=== PATIENT | female | born 1950 | race Caucasian/White ===

== ENCOUNTER 2019-04-27 07:43 | Inpatient (IN) | payer MEDICARE ==
--- NOTE | 2019-04-27 08:02 | ER Document Report ---
ED General - General Stated Complaint: VOMITING,BLOOD PRESSURE ISSUES Time Seen by Provider: 04/27/19 08:02 - HPI Notes: 69 y/o presenting to ED for evaluation of weakness, chills, clear liquid emesis x3, and generalized sensation of being unwell she went to pcp today and was referrred to ED due to symptoms and blood sugar in 350 range she has no h/o diabetes she was unaware that she has had a fever and upon questioning also reports a cough -nonproductive. - Related Data Allergies/Adverse Reactions: Penicillins Allergy (Verified 04/27/19 09:12) Sulfa (Sulfonamide Antibiotics) Allergy (Verified 04/27/19 09:12) Past Medical History - Social History Smoking Status: Unknown if Ever Smoked Family History: Reviewed & Not Pertinent Review of Systems - Review of Systems Constitutional: Chills, Fever, Weakness EENT: No symptoms reported Cardiovascular: No symptoms reported Respiratory: Cough, Short of breath Gastrointestinal: Nausea, Vomiting. denies: Diarrhea Genitourinary: No symptoms reported Female Genitourinary: No symptoms reported Musculoskeletal: No symptoms reported Skin: No symptoms reported Hematologic/Lymphatic: No symptoms reported Neurological/Psychological: No symptoms reported Physical Exam - Vital signs Vitals: Temp Pulse Resp BP Pulse Ox 100.3 F 124 H 22 H 125/52 L 95 04/27/19 07:51 04/27/19 07:51 04/27/19 07:51 04/27/19 07:51 04/27/19 07:51 Interpretation: Normal - General General appearance: Alert, Other - appears uncomfortable - HEENT Head: Normocephalic, Atraumatic Eyes: Normal Pupils: PERRL Tympanic membrane: Normal Nasal: Normal Mouth/Lips: Normal Mucous membranes: Dry Pharynx: Normal Neck: Normal, Supple - Respiratory Respiratory status: No respiratory distress Chest status: Nontender Breath sounds: Normal Chest palpation: Normal - Cardiovascular Rhythm: Tachycardia Heart sounds: Normal auscultation Murmur: No Pulses: Normal: Radial - Abdominal Inspection: Normal Distension: No distension Bowel sounds: Normal Tenderness: Nontender Organomegaly: No organomegaly - Back Back: Normal, Nontender - Extremities General upper extremity: Normal inspection, Nontender, Normal color, Normal ROM, Normal temperature General lower extremity: Normal inspection, Nontender, Normal color, Normal ROM, Normal temperature, Normal weight bearing. No: Carolina's sign - Neurological Neuro grossly intact: Yes Cognition: Normal Orientation: AAOx4 [place] Coma Scale Eye Opening: Spontaneous [place] Coma Scale Verbal: Oriented [place] Coma Scale Motor: Obeys Commands [place] Coma Scale Total: 15 Speech: Normal Motor strength normal: LUE, RUE, LLE, RLE Sensory: Normal - Psychological Associated symptoms: Normal affect, Normal mood - Skin Skin Temperature: Warm Skin Moisture: Dry Skin Color: Normal Course - Re-evaluation Re-evalutation: 04/27/19 08:23 patient w/ nonspecific presentation w/ fever and elevated blood sugar will check for sepsis, pna, uti, and electrolyte disturbances start ivf upon arrival 04/27/19 10:53 infiltrate on CTA rocephin and zithromax started admit requested - Vital Signs Vital signs: Temp Pulse Resp BP Pulse Ox 100.3 F 124 H 20 118/66 92 04/27/19 07:51 04/27/19 07:51 04/27/19 09:11 04/27/19 09:11 04/27/19 09:11 - Laboratory Result Diagrams: 04/27/19 08:10 04/27/19 08:10 Laboratory results interpreted by me: 04/27/19 04/27/19 08:10 08:10 Plt Count 125 L Lymph % (Auto) 7.6 L Seg Neutrophils % 87.6 H Sodium 133.5 L Chloride 97 L BUN 25 H Creatinine 1.52 H Est GFR ( Amer) 41 L Est GFR (MDRD) Non-Af 34 L Glucose 353 H Direct Bilirubin 0.5 H Alkaline Phosphatase 137 H - Diagnostic Test Radiology reviewed: Reports reviewed - EKG Interpretation by Me Additional EKG results interpreted by me: 04/27/19 10:54 sinus tachycardia, nonspecific T wave changes Discharge - Discharge Clinical Impression: Hyperglycemia, Shortness of breath Pneumonia Qualifiers: Pneumonia type: due to unspecified organism Laterality: right Lung location: middle lobe of lung Qualified Code(s): J18.1 - Lobar pneumonia, unspecified organism Condition: Stable Disposition: ADMITTED INPATIENT Admitting Provider: Waldemar (Hospitalist) Unit Admitted: Telemetry
[2019-04-27] MEDS ORDERED: NORMAL SALINE 1000 ML 1,000 ML IV ONE ×4 (08:20→18:30)
[2019-04-27] MEDS ORDERED: ACETAMINOPHEN 325 MG TABLET PO ONE (08:21)
[2019-04-27] MEDS ORDERED: ONDANSETRON HCL INJ/PF 4 MG/2 ML SDV IV ONE (08:24)
[2019-04-27 08:26] LABS: ABSOLUTE LYMPHOCYTES (AUTO) 0.6 10^3/uL (0.5-4.7); ABSOLUTE MONOCYTES (AUTO) 0.3 10^3/uL (0.1-1.4); ABSOLUTE NEUT (AUTO) 7.4 10^3/uL (1.7-8.2); BASOPHILS % (AUTO) 0.2 % (0-2); EOSINOPHILS % (AUTO) 0.6 % (0-6); HEMATOCRIT 38.3 % (36.0-47.0); HEMOGLOBIN 13.4 g/dL (12.0-15.5); LYMPHOCYTES % (AUTO) 7.6 % (13-45); MEAN CORPUSCULAR HEMOGLOBIN 32.4 pg (27.0-33.4); MEAN CORPUSCULAR HGB CONC 34.9 g/dL (32.0-36.0); MEAN CORPUSCULAR VOLUME 93 fl (80-97); PLATELET COUNT 125 10^3/uL (150-450); RED BLOOD COUNT 4.13 10^6/uL (3.72-5.28); RED CELL DISTRIBUTION WIDTH 12.8 % (11.5-14.0); SEGMENTED NEUTROPHILS % (AUTO) 87.6 % (42-78); TOTAL CELLS COUNTED % (AUTO) 100 %; WHITE BLOOD COUNT 8.4 10^3/uL (4.0-10.5)
[2019-04-27 08:27] LABS: VENOUS BLOOD BASE EXCESS 0.6 mmol/L; VENOUS BLOOD HCO3 25.6 mmol/L (20-32); VENOUS BLOOD PCO2 42.4 mmHg (35-63); VENOUS BLOOD PH 7.4 (7.30-7.42)
[2019-04-27 08:33] LABS: INTERNATIONAL RATION (INR) 1.09; PROTHROMBIN TIME 14.1 SEC (11.4-15.4)
[2019-04-27 08:46] LABS: ALBUMIN 3.5 g/dL (3.5-5.0); ALKALINE PHOSPHATASE 137 U/L (38-126); ANION GAP 12 (5-19); ASPARTATE AMINO TRANSFERASE 34 U/L (14-36); BILIRUBIN,DIRECT 0.5 mg/dL (0.0-0.4); BILIRUBIN,TOTAL 1.3 mg/dL (0.2-1.3); BLOOD UREA NITROGEN 25 mg/dL (7-20); CARBON DIOXIDE 25 mmol/L (22-30); CHLORIDE 97 mmol/L (98-107); GLUCOSE 353 mg/dL (75-110); POTASSIUM 3.8 mmol/L (3.6-5.0); TOTAL PROTEIN 6.5 g/dL (6.3-8.2)
[2019-04-27] MEDS ORDERED: IPRATROPIUM/ALBUTEROL 0.5-2.5 MG/3 ML AMPUL NEB ONE ×2 (08:46→08:54)
[2019-04-27] MEDS ORDERED: ONDANSETRON HCL INJ/PF 4 MG/2 ML SDV ONE (08:54)
--- NOTE | 2019-04-27 09:13 | RADIOLOGY REPORT (SQ) ---
EXAM DESCRIPTION: CHEST SINGLE VIEW COMPLETED DATE/TIME: 04/27/2019 9:00 am REASON FOR STUDY: fever COMPARISON: None. EXAM PARAMETERS: NUMBER OF VIEWS: One view. TECHNIQUE: Single frontal radiographic view of the chest acquired. RADIATION DOSE: NA LIMITATIONS: None. FINDINGS: LUNGS AND PLEURA: No opacities, masses or pneumothorax. No pleural effusion. MEDIASTINUM AND HILAR STRUCTURES: No masses. Contour normal. HEART AND VASCULAR STRUCTURES: Heart normal in size. Aortic atherosclerosis. BONES: No acute findings. HARDWARE: None in the chest. OTHER: No other significant finding. IMPRESSION: No focal consolidation or other evidence of acute cardiopulmonary process. TECHNICAL DOCUMENTATION: JOB ID: [id number] [employer]- All Rights Reserved Reading location - IP/workstation name: [email or web address]
[2019-04-27 09:20] LABS: A TYPE INFLUENZA AG NEGATIVE (NEGATIVE); B INFLUENZA AG NEGATIVE (NEGATIVE)
--- NOTE | 2019-04-27 10:31 | RADIOLOGY REPORT (SQ) ---
EXAM DESCRIPTION: CTA CHEST COMPLETED DATE/TIME: 04/27/2019 10:15 am REASON FOR STUDY: short of breath COMPARISON: None. TECHNIQUE: CT scan of the chest performed using helical scanning technique with dynamic intravenous contrast injection. Images reviewed with lung, soft tissue and bone windows. Reconstructed coronal and sagittal MPR images reviewed. Additional 3 dimensional post-processing performed to develop Maximal Intensity Projection images (PR P). All images stored on PACS. All CT scanners at this facility use dose modulation, iterative reconstruction, and/or weight based d osing when appropriate to reduce radiation dose to as low as reasonably achievable (ALARA). [facility]: Dose Right [facility]: CareDose [facility]: Dose Right [facility]: Teradose 4D [facility]: Huy [place] CONTRAST TYPE AND DOSE: contrast/concentration: Isovue 350.00 mg/ml; Total Contrast Delivered: 67.0 ml; Total Saline Delivered: 80.0 ml Contrast bolus optimized for the pulmonary arteries. Not diagnostic for the aorta. RENAL FUNCTION: GFR > 60. RADIATION DOSE: CT Rad equipment meets quality standard of care and radiation dose reduction techniq ues were employed. CTDIvol: 13.2 - 24.8 mGy. DLP: 863 mGy-cm. . LIMITATIONS: None. FINDINGS: LUNGS AND PLEURA: Bandlike scarring or consolidation of the medial right middle lobe. No pleural effusions or pleural calcifications. AORTA AND GREAT VESSELS: No aneurysm. Contrast bolus not optimized for the aorta. Severe mixed calc ific atherosclerosis of the descending aorta with irregular mural thrombus. HEART: No pericardial effusion. No significant coronary artery calcifications. PULMONARY ARTERIES: No emboli visualized in the main pulmonary arteries or the segmental branches. C oronary artery calcifications. HILAR AND MEDIASTINAL STRUCTURES: No identified masses or abnormal nodes. HARDWARE: None in the chest. UPPER ABDOMEN: No significant findings. Limited exam. THYROID AND OTHER SOFT TISSUES: No masses. No adenopathy. BONES: No acute or significant finding. 3D MIPS: Confirm above findings. OTHER: No other significant finding. IMPRESSION: 1. Negative examination for pulmonary embolism. 2. Bandlike scarring or consolidation in the medial right middle lobe, which can be seen as sequelae of atypical infection, including atypical mycobacterium. 3. Severe mixed calcific atherosclerosis of the descending thoracic aorta with irregular mural throm bus. 4. Coronary artery disease. COMMENT: Quality ID # [id number]: Final reports with documentation of one or more dose reduction techniques (e.g., Automated exposure control, adjustment of the mA and/or kV according to patient size, use of iterative reconstruction technique) TECHNICAL DOCUMENTATION: JOB ID: [id number] [employer]- All Rights Reserved Reading location - IP/workstation name: [email or web address]
[2019-04-27] MEDS ORDERED: CEFTRIAXONE 1 GM/D5W RTU 1 GM/50 ML RTUPB IV ONE (10:50)
[2019-04-27] MEDS ORDERED: AZITHROMYCIN INJ 500 MG VIAL IV ONE (10:50)
[2019-04-27] MEDS ORDERED: ONDANSETRON HCL INJ/PF 4 MG/2 ML SDV IV PRN (11:12)
[2019-04-27] MEDS ORDERED: MAG HYDROX/AL HYDROX/SIMETH SUSP 30 ML UDCUP PO PRN (11:12)
[2019-04-27] MEDS ORDERED: DEXTROSE 40% GEL 15 GM TUBE PO PRN ×2 (11:16)
[2019-04-27] MEDS ORDERED: GLUCAGON,HUMAN RECOMB 1 MG INJ IM PRN (11:16)
[2019-04-27] MEDS ORDERED: DEXTROSE 50%-WATER 25 GM/50 ML DISP.SYRIN IV PRN ×2 (11:16)
[2019-04-27] MEDS ORDERED: INFLUENZA QUAD (6MOS+) 2019-20 VAC 0.5 ML SYR IM ONE (11:17)
--- NOTE | 2019-04-27 11:23 | PDOC H&P ---
History of Present Illness Admission Date/PCP: 04/27/19 11:08 GEORGE YANG PA-C Patient complains of: Cough, left-sided pain below her shoulder blade History of Present Illness: LIDA PERKINS is a 69 year old female who presents from her primary care office with hyperglycemia with a blood sugar of 353. Patient also complains of weakness, chills and clear emesis x3 days. Patient has no history of diabetes and she was unaware that she had a fever but has reported a nonproductive cough. She had no treatment prior to arrival all activities aggravating factor. Past Medical History Cardiac Medical History: Reports: Hypertension Pulmonary Medical History: Reports: None EENT Medical History: Reports: None Neurological Medical History: Reports: None Endocrine Medical History: Reports: None Renal/ Medical History: Reports: None Malignancy Medical History: Reports: None GI Medical History: Reports: None Musculoskeltal Medical History: Reports: None Skin Medical History: Reports: None Psychiatric Medical History: Reports: None Traumatic Medical History: Reports: None Hematology: Reports: None Infectious Medical History: Reports: None Past Surgical History Past Surgical History: Reports: Cholecystectomy, Tubal Ligation Social History Information Source: Patient Lives with: Family Smoking Status: Former Smoker Frequency of Alcohol Use: None Hx Recreational Drug Use: No Drugs: None Hx Prescription Drug Abuse: No - Advance Directive Resuscitation Status: Full Code Family History Family History: Hypertension Parental Family History Reviewed: Yes Children Family History Reviewed: Yes Sibling(s) Family History Reviewed.: Yes Medication/Allergy Home Medications: Lisinopril 04/27/19 Allergies/Adverse Reactions: Penicillins Allergy (Verified 04/27/19 09:12) Sulfa (Sulfonamide Antibiotics) Allergy (Verified 04/27/19 09:12) Review of Systems Constitutional: PRESENT: weakness. ABSENT: chills, fever(s), headache(s), weight gain, weight loss Eyes: ABSENT: visual disturbances Ears: ABSENT: hearing changes Cardiovascular: ABSENT: chest pain, dyspnea on exertion, edema, orthropnea, palpitations Respiratory: PRESENT: cough, sputum. ABSENT: hemoptysis Gastrointestinal: ABSENT: abdominal pain, constipation, diarrhea, hematemesis, hematochezia, nausea, vomiting Genitourinary: ABSENT: dysuria, hematuria Musculoskeletal: ABSENT: joint swelling Integumentary: ABSENT: rash, wounds Neurological: ABSENT: abnormal gait, abnormal speech, confusion, dizziness, focal weakness, syncope Psychiatric: ABSENT: anxiety, depression, homidical ideation, suicidal ideation Endocrine: ABSENT: cold intolerance, heat intolerance, polydipsia, polyuria Hematologic/Lymphatic: ABSENT: easy bleeding, easy bruising Physical Exam Vital Signs: Temp Pulse Resp BP Pulse Ox 100.3 F 124 H 20 118/66 92 04/27/19 07:51 04/27/19 07:51 04/27/19 09:11 04/27/19 09:11 04/27/19 09:11 Intake & Output 04/26/19 04/27/19 04/28/19 06:59 06:59 06:59 Weight 94.12 kg General appearance: PRESENT: no acute distress, well-developed, well-nourished Head exam: PRESENT: atraumatic, normocephalic Eye exam: PRESENT: conjunctiva pink, EOMI, PERRLA. ABSENT: scleral icterus Ear exam: PRESENT: normal external ear exam Mouth exam: PRESENT: moist, tongue midline Neck exam: ABSENT: carotid bruit, JVD, lymphadenopathy, thyromegaly Respiratory exam: PRESENT: crackles, decreased breath sounds, symmetrical, tachypnea, unlabored. ABSENT: rales, rhonchi, wheezes Cardiovascular exam: PRESENT: RRR. ABSENT: diastolic murmur, rubs, systolic murmur Pulses: PRESENT: normal dorsalis pedis pul Vascular exam: PRESENT: normal capillary refill GI/Abdominal exam: PRESENT: normal bowel sounds, soft. ABSENT: distended, guarding, mass, organolmegaly, rebound, tenderness Rectal exam: PRESENT: deferred Extremities exam: PRESENT: full ROM. ABSENT: calf tenderness, clubbing, pedal edema Neurological exam: PRESENT: alert, awake, oriented to person, oriented to place, oriented to time, oriented to situation, CN II-XII grossly intact. ABSENT: motor sensory deficit Psychiatric exam: PRESENT: appropriate affect, normal mood. ABSENT: homicidal ideation, suicidal ideation Skin exam: PRESENT: dry, intact, warm. ABSENT: cyanosis, rash Results Laboratory Results: 04/27/19 08:10 04/27/19 08:10 04/27/19 04/27/19 04/27/19 08:10 08:10 08:10 WBC 8.4 RBC 4.13 Hgb 13.4 Hct 38.3 MCV 93 MCH 32.4 MCHC 34.9 RDW 12.8 Plt Count 125 L Seg Neutrophils % 87.6 H VBG pH VBG pCO2 VBG HCO3 VBG Base Excess Sodium 133.5 L Potassium 3.8 Chloride 97 L Carbon Dioxide 25 Anion Gap 12 BUN 25 H Creatinine 1.52 H Est GFR ( Amer) 41 L Glucose 353 H Lactic Acid 1.6 Calcium 9.0 Total Bilirubin 1.3 AST 34 Alkaline Phosphatase 137 H Total Protein 6.5 Albumin 3.5 04/27/19 08:10 WBC RBC Hgb Hct MCV MCH MCHC RDW Plt Count Seg Neutrophils % VBG pH 7.40 VBG pCO2 42.4 VBG HCO3 25.6 VBG Base Excess 0.6 Sodium Potassium Chloride Carbon Dioxide Anion Gap BUN Creatinine Est GFR ( Amer) Glucose Lactic Acid Calcium Total Bilirubin AST Alkaline Phosphatase Total Protein Albumin Impressions: Chest X-Ray 04/27/19 00:00 IMPRESSION: No focal consolidation or other evidence of acute cardiopulmonary process. Chest/Abdomen CTA 04/27/19 09:40 IMPRESSION: 1. Negative examination for pulmonary embolism. 2. Bandlike scarring or consolidation in the medial right middle lobe, which can be seen as sequelae of atypical infection, including atypical mycobacterium. 3. Severe mixed calcific atherosclerosis of the descending thoracic aorta with irregular mural thrombus. 4. Coronary artery disease. Assessment and Plan - Plan Summary Summary: 04/27/2019 Community-acquired pneumonia-Place patient on medical surgical floor at this time. Rocephin 1 g IV daily, azithromycin 500 mg IV daily, bronchodilators, Solu-Medrol 40 mg IV every 8 hours. Reassess in the a.m. await blood cultures and sputum culture. New onset type 2 diabetes mellitus-sliding scale insulin before meals and at bedtime. A1c. Once A1c was returned I will add oral medications as needed for glycemic control. Carbohydrate controlled diet. Dietary education. Acute renal failure-hydrate with normal saline 100 mL an hour. Patient has no previous labs to confirm compare this to however do suspect its acute nature secondary to her acute illness. Will repeat BMP in the a.m. Hypertension-continue lisinopril from home. Tachycardia-most likely secondary to acute dehydration. Will hydrate with normal saline at 100 mL an hour overnight-. Reassess in the a.m. DVT prophylaxis-heparin 5000 units subcu every 8 hours. - Time Time Spent with patient: 35 or more minutes - Inpatient Certification Based on my medical assessment, after consideration of the patient's comorbidities, presenting symptoms, or acuity I expect that the services needed warrant INPATIENT care.: Yes I certify that my determination is in accordance with my understanding of Medicare's requirements for reasonable and necessary INPATIENT services [42 CFR 412.3e].: Yes Medical Necessity: Other - IV fluids, IV antibiotics
[2019-04-27] MEDS: ALBUTEROL SULFATE 0.083% NEB 2.5 MG/3 ML AMPUL NEB SCH ×3 (11:54→20:26)
[2019-04-27 12:59] LABS: ANION GAP 14 (5-19); BLOOD UREA NITROGEN 27 mg/dL (7-20); CALCIUM 8.2 mg/dL (8.4-10.2); CARBON DIOXIDE 19 mmol/L (22-30); CHLORIDE 97 mmol/L (98-107); POTASSIUM 4.4 mmol/L (3.6-5.0)
[2019-04-27 13:13] LABS: GLUCOSE 438 mg/dL (75-110)
[2019-04-27] MEDS: OXYCODONE-ACETAMINOPHEN 5-325 MG TABLET PO PRN (13:34)
[2019-04-27] MEDS: NORMAL SALINE 1000 ML 1,000 ML IV PRN ×2 (13:36→22:31)
--- NOTE | 2019-04-27 13:39 | EKG REPORT ---
SEVERITY:- BORDERLINE ECG - SINUS TACHYCARDIA BORDERLINE T ABNORMALITIES, INFERIOR LEADS : Confirmed by: Teresa Neumann MD 27-Apr-2019 13:38:08
[2019-04-27] MEDS: METHYLPREDNISOLONE INJ 40 MG/1 ML SDV IV SCH ×2 (14:51→21:20)
[2019-04-27] MEDS: HEPARIN SOD (PORCINE) 5,000 UNIT/ML 1 ML VIAL SUBCUT SCH ×2 (14:55→21:19)
[2019-04-27] MEDS ORDERED: INSULIN REG, HUMAN 100 UNIT/ML 3 ML VIAL (PYX) SUBCUT SCH (16:00)
[2019-04-27] MEDS ORDERED: INSULIN REG, HUMAN 100 UNIT/ML 3 ML VIAL (PYX) SUBCUT ONE ×2 (18:01→21:30)
[2019-04-27 19:54] LABS: APPEARANCE,URINE SLIGHTLY-CLOUDY; BILIRUBIN,URINE NEGATIVE (NEGATIVE); COLOR,URINE YELLOW; GLUCOSE, URINE >=500 mg/dL (NEGATIVE); KETONES,URINE NEGATIVE (NEGATIVE); LEUKOCYTE ESTERASE,URINE MODERATE (NEGATIVE); NITRITE,URINE NEGATIVE (NEGATIVE); PROTEIN,URINE 30 mg/dL (NEGATIVE); URINE SPECIFIC GRAVITY 1.042; UROBILINOGEN,URINE NEGATIVE mg/dL (<2.0)
[2019-04-27] MEDS ORDERED: RINGERS SOLUTION,LACTATED 1,000 ML IV ONE (20:58)
[2019-04-27] MEDS: ZOLPIDEM TARTRATE 5 MG TABLET PO PRN (21:20)
[2019-04-27] MEDS: GUAIFENESIN 600 MG TABLET.SA PO SCH (21:20)
[2019-04-27] MEDS ORDERED: INSULIN REG, HUMAN 100 UNIT/ML 3 ML VIAL (PYX) IV ONE (22:20)
[2019-04-27] MEDS: METRONIDAZOLE 500 MG/NS RTU 500 MG/100 ML RTUPB IV SCH (23:52)
[2019-04-28] MEDS: ALBUTEROL SULFATE 0.083% NEB 2.5 MG/3 ML AMPUL NEB SCH ×6 (00:02→20:17)
--- NOTE | 2019-04-28 02:00 | Progress Note ---
Provider Note Provider Note: Critical care: 04/27/2019 Critical care start time: 9 PM Critical care issues: Hyperglycemia, positive anaerobic blood culture with gram- negative rods. The patient's nurse contacted me concerning the patient's blood sugars which were not responding to insulin therapy. The patient had been given 30 units of regular insulin in the emergency room 3 hours prior to her Accu-Chek being performed and her blood sugar was unchanged at greater than 550. Patient's sliding scale insulin was increased in dosage's thus allowing for a maximum of 30 units subcutaneously. Patient was then treated with a 30 unit dose of regular insulin and observed. Patient continued to remain and symptomatic. More than an hour after her insulin dose her blood sugar was unchanged. A 15 unit dose of regular insulin was administered IV and her blood sugar was again checked in 1 hour with a recording of 499. The patient was noted to have received intravenous steroids which along with the stress of her current illness could result in very high blood sugars. I have reassured the patient in the nursing staff that the blood sugars will return to a more normal level without overly aggressive insulin therapy. Patient was also noted to have a positive anaerobic blood culture with gram-negative rods being observed. Flagyl 500 mg IV every 6 hours was added to the patient's therapeutic regimen. Critical care end time: 11:55 PM Critical care [id number] time: 19 minutes
[2019-04-28] MEDS: METRONIDAZOLE 500 MG/NS RTU 500 MG/100 ML RTUPB IV SCH ×4 (05:40→23:54)
[2019-04-28] MEDS: HEPARIN SOD (PORCINE) 5,000 UNIT/ML 1 ML VIAL SUBCUT SCH ×3 (05:41→22:13)
[2019-04-28] MEDS: METHYLPREDNISOLONE INJ 40 MG/1 ML SDV IV SCH (05:41)
[2019-04-28 05:43] LABS: HEMATOCRIT 31.6 % (36.0-47.0); MEAN CORPUSCULAR HEMOGLOBIN 32.3 pg (27.0-33.4); MEAN CORPUSCULAR HGB CONC 34.4 g/dL (32.0-36.0); MEAN CORPUSCULAR VOLUME 94 fl (80-97); PLATELET COUNT 125 10^3/uL (150-450); RED BLOOD COUNT 3.36 10^6/uL (3.72-5.28); RED CELL DISTRIBUTION WIDTH 12.9 % (11.5-14.0); WHITE BLOOD COUNT 8.9 10^3/uL (4.0-10.5)
[2019-04-28 05:51] LABS: PHOSPHORUS 2.7 mg/dL (2.5-4.5)
[2019-04-28 05:56] LABS: HEMOGLOBIN 10.9 g/dL (12.0-15.5)
[2019-04-28 06:04] LABS: FREE T4 (FREE THYROXINE) 0.95 ng/dL (0.78-2.19)
[2019-04-28 06:18] LABS: THYROID STIMULATING HORMONE 1.37 uIU/mL (0.47-4.68)
[2019-04-28] MEDS ORDERED: MAGNESIUM SULFATE/D5W 1 GM/100 ML RTUPB IV ONE (08:38)
--- NOTE | 2019-04-28 08:44 | PDOC PROGRESS REPORT ---
Subjective Progress Note for:: 04/28/19 Subjective:: 04/28/2019-no complaints this a.m. Reason For Visit: PNEUMONIA,HYPERGLYCEMIA,SHORTNESS OF BREATH Physical Exam Vital Signs: Temp Pulse Resp BP Pulse Ox 97.5 F 76 14 101/47 L 96 04/28/19 03:02 04/28/19 04:10 04/28/19 04:10 04/28/19 03:02 04/28/19 04:10 Intake & Output 04/27/19 04/28/19 04/29/19 06:59 06:59 06:59 Intake Total 6042 Balance 6042 Weight 96.7 kg General appearance: PRESENT: no acute distress, well-developed, well-nourished Neck exam: ABSENT: carotid bruit, JVD, lymphadenopathy, thyromegaly Respiratory exam: PRESENT: decreased breath sounds, symmetrical, unlabored Cardiovascular exam: PRESENT: RRR. ABSENT: diastolic murmur, rubs, systolic murmur Pulses: PRESENT: +1 pedal pulses bilateral GI/Abdominal exam: PRESENT: normal bowel sounds, soft. ABSENT: distended, guarding, mass, organolmegaly, rebound, tenderness Extremities exam: PRESENT: full ROM. ABSENT: calf tenderness, clubbing, pedal edema Neurological exam: PRESENT: alert, awake, oriented to person, oriented to place, oriented to time, oriented to situation, CN II-XII grossly intact. ABSENT: motor sensory deficit Psychiatric exam: PRESENT: appropriate affect, normal mood. ABSENT: homicidal ideation, suicidal ideation Skin exam: PRESENT: dry, intact, warm. ABSENT: cyanosis, rash Results Laboratory Results: 04/28/19 04:40 04/27/19 12:26 04/27/19 04/27/19 04/27/19 08:10 08:10 12:26 WBC RBC Hgb Hct MCV MCH MCHC RDW Plt Count Sodium 133.5 L 130.1 L Potassium 3.8 4.4 Chloride 97 L 97 L Carbon Dioxide 25 19 L Anion Gap 12 14 BUN 25 H 27 H Creatinine 1.52 H 1.76 H Est GFR ( Amer) 41 L 34 L Glucose 353 H 438 H* Lactic Acid 1.6 Calcium 9.0 8.2 L Phosphorus Magnesium Total Bilirubin 1.3 AST 34 Alkaline Phosphatase 137 H Total Protein 6.5 Albumin 3.5 TSH Free T4 Urine Color Urine Appearance Urine pH Ur Specific [place] Urine Protein Urine Glucose (UA) Urine Ketones Urine Blood Urine Nitrite Ur Leukocyte Esterase Urine WBC (Auto) Urine RBC (Auto) 04/27/19 04/28/19 04/28/19 19:30 04:40 04:40 WBC 8.9 RBC 3.36 L Hgb 10.9 L D Hct 31.6 L MCV 94 MCH 32.3 MCHC 34.4 RDW 12.9 Plt Count 125 L Sodium Potassium Chloride Carbon Dioxide Anion Gap BUN Creatinine Est GFR ( Amer) Glucose Lactic Acid Calcium Phosphorus 2.7 Magnesium 1.5 L Total Bilirubin AST Alkaline Phosphatase Total Protein Albumin TSH Free T4 Urine Color YELLOW Urine Appearance SLIGHTLY-CLOUDY Urine pH 5.0 Ur Specific [place] 1.042 Urine Protein 30 H Urine Glucose (UA) >=500 H Urine Ketones NEGATIVE Urine Blood LARGE H Urine Nitrite NEGATIVE Ur Leukocyte Esterase MODERATE H Urine WBC (Auto) 46 Urine RBC (Auto) 7 04/28/19 04:40 WBC RBC Hgb Hct MCV MCH MCHC RDW Plt Count Sodium Potassium Chloride Carbon Dioxide Anion Gap BUN Creatinine Est GFR ( Amer) Glucose Lactic Acid Calcium Phosphorus Magnesium Total Bilirubin AST Alkaline Phosphatase Total Protein Albumin TSH 1.37 Free T4 0.95 Urine Color Urine Appearance Urine pH Ur Specific [place] Urine Protein Urine Glucose (UA) Urine Ketones Urine Blood Urine Nitrite Ur Leukocyte Esterase Urine WBC (Auto) Urine RBC (Auto) Impressions: Chest X-Ray 04/27/19 00:00 IMPRESSION: No focal consolidation or other evidence of acute cardiopulmonary process. Chest/Abdomen CTA 04/27/19 09:40 IMPRESSION: 1. Negative examination for pulmonary embolism. 2. Bandlike scarring or consolidation in the medial right middle lobe, which can be seen as sequelae of atypical infection, including atypical mycobacterium. 3. Severe mixed calcific atherosclerosis of the descending thoracic aorta with irregular mural thrombus. 4. Coronary artery disease. Assessment and Plan - Plan Summary Summary: 04/27/2019 Community-acquired pneumonia-Place patient on medical surgical floor at this time. Rocephin 1 g IV daily, azithromycin 500 mg IV daily, bronchodilators, Solu-Medrol 40 mg IV every 8 hours. Reassess in the a.m. await blood cultures and sputum culture. New onset type 2 diabetes mellitus-sliding scale insulin before meals and at bedtime. A1c. Once A1c was returned I will add oral medications as needed for glycemic control. Carbohydrate controlled diet. Dietary education. Acute renal failure-hydrate with normal saline 100 mL an hour. Patient has no previous labs to confirm compare this to however do suspect its acute nature secondary to her acute illness. Will repeat BMP in the a.m. Hypertension-continue lisinopril from home. Tachycardia-most likely secondary to acute dehydration. Will hydrate with normal saline at 100 mL an hour overnight-. Reassess in the a.m. DVT prophylaxis-heparin 5000 units subcu every 8 hours. 04/28/2019- Community acquired pneumonia-continue Rocephin and azithromycin at this time. IV Solu-Medrol has been DC'd as wheezing has ceased I will place patient on 40 mg of p.o. prednisone daily. Awaiting cultures New onset type 2 diabetes mellitus A1c 12.5-most likely will require outpatient insulin therapy as well as oral medications. At this time patient remains high most likely secondary to steroids. I DC'd her IV steroids patient on p.o. prednisone. She is on a carbohydrate controlled diet I will initiate oral medications in the a.m. I have also ordered nurses to perform Accu-Chek blood sugars every couple hours and to cover with sliding scale until patient's blood sugar is down to a reasonable level. Acute renal failure-continue to follow most likely chronic in nature. Tachycardia-stable and improved. We will continue to follow Hypomagnesemia-1 g IV magnesium sulfate at this time we will repeat magnesium level in a.m. - Time Time Spent with patient: 15-24 minutes - Inpatient Certification Based on my medical assessment, after consideration of the patient's comor bidities, presenting symptoms, or acuity I expect that the services needed warrant INPATIENT care.: Yes I certify that my determination is in accordance with my understanding of Medicare's requirements for reasonable and necessary INPATIENT services [42 CFR 412.3e].: Yes Medical Necessity: Other - IV antibiotics
[2019-04-28] MEDS: PREDNISONE 20 MG TABLET PO SCH (09:06)
[2019-04-28] MEDS: INSULIN REG, HUMAN 100 UNIT/ML 3 ML VIAL (PYX) SUBCUT PRN ×4 (09:07→22:14)
[2019-04-28] MEDS: GUAIFENESIN 600 MG TABLET.SA PO SCH ×2 (09:08→22:14)
[2019-04-28] MEDS ORDERED: AZITHROMYCIN 500 MG in DEXTROSE 5%-WATER 250 ML IV SCH (10:00)
[2019-04-28] MEDS: CEFTRIAXONE 1 GM/D5W RTU 1 GM/50 ML RTUPB IV SCH (12:57)
[2019-04-28] MEDS: INSULIN GLARGINE,HUM.REC.ANLOG 1,000 UNIT/10 ML VIAL SUBCUT SCH (16:34)
[2019-04-29] MEDS: ALBUTEROL SULFATE 0.083% NEB 2.5 MG/3 ML AMPUL NEB SCH ×7 (00:06→23:49)
[2019-04-29] MEDS: HEPARIN SOD (PORCINE) 5,000 UNIT/ML 1 ML VIAL SUBCUT SCH ×3 (05:36→22:46)
[2019-04-29] MEDS: METRONIDAZOLE 500 MG/NS RTU 500 MG/100 ML RTUPB IV SCH (05:40)
[2019-04-29 05:55] LABS: HEMATOCRIT 32.1 % (36.0-47.0); HEMOGLOBIN 11.1 g/dL (12.0-15.5); MEAN CORPUSCULAR HEMOGLOBIN 32.3 pg (27.0-33.4); MEAN CORPUSCULAR HGB CONC 34.6 g/dL (32.0-36.0); MEAN CORPUSCULAR VOLUME 93 fl (80-97); PLATELET COUNT 165 10^3/uL (150-450); RED BLOOD COUNT 3.44 10^6/uL (3.72-5.28); RED CELL DISTRIBUTION WIDTH 12.6 % (11.5-14.0)
[2019-04-29 06:18] LABS: ANION GAP 8 (5-19); BLOOD UREA NITROGEN 34 mg/dL (7-20); CALCIUM 8.1 mg/dL (8.4-10.2); CARBON DIOXIDE 23 mmol/L (22-30); CHLORIDE 104 mmol/L (98-107); GLUCOSE 255 mg/dL (75-110); POTASSIUM 3.9 mmol/L (3.6-5.0)
--- NOTE | 2019-04-29 08:13 | PDOC PROGRESS REPORT ---
Subjective Progress Note for:: 04/29/19 Subjective:: 04/28/2019-no complaints this a.m. 04/29/2019-patient states she is feeling much better this a.m. Reason For Visit: COMMUNITY ACQUIRED PNEUMONIA, NEW ONSET DIABETES Physical Exam Vital Signs: Temp Pulse Resp BP Pulse Ox 98 F 68 16 134/60 H 91 L 04/29/19 00:00 04/29/19 04:09 04/29/19 04:09 04/29/19 00:00 04/29/19 04:09 Intake & Output 04/28/19 04/29/19 04/30/19 06:59 06:59 06:59 Intake Total 6042 4300 100 Balance 6042 4300 100 Weight 96.7 kg 98.7 kg General appearance: PRESENT: no acute distress, well-developed, well-nourished Neck exam: ABSENT: carotid bruit, JVD, lymphadenopathy, thyromegaly Respiratory exam: PRESENT: clear to auscultation gay. ABSENT: rales, rhonchi, wheezes Cardiovascular exam: PRESENT: RRR. ABSENT: diastolic murmur, rubs, systolic murmur Pulses: PRESENT: +1 pedal pulses bilateral Vascular exam: PRESENT: normal capillary refill GI/Abdominal exam: PRESENT: normal bowel sounds, soft. ABSENT: distended, guarding, mass, organolmegaly, rebound, tenderness Extremities exam: PRESENT: full ROM. ABSENT: calf tenderness, clubbing, pedal edema Neurological exam: PRESENT: alert, awake, oriented to person, oriented to place, oriented to time, oriented to situation, CN II-XII grossly intact. ABSENT: motor sensory deficit Psychiatric exam: PRESENT: appropriate affect, normal mood. ABSENT: homicidal ideation, suicidal ideation Skin exam: PRESENT: dry, intact, warm. ABSENT: cyanosis, rash Results Laboratory Results: 04/29/19 05:17 04/29/19 05:17 04/29/19 04/29/19 05:17 05:17 WBC 12.0 H RBC 3.44 L Hgb 11.1 L Hct 32.1 L MCV 93 MCH 32.3 MCHC 34.6 RDW 12.6 Plt Count 165 Sodium 134.8 L Potassium 3.9 Chloride 104 Carbon Dioxide 23 Anion Gap 8 BUN 34 H Creatinine 1.39 H Est GFR ( Amer) 45 L Glucose 255 H Calcium 8.1 L Impressions: Chest X-Ray 04/27/19 00:00 IMPRESSION: No focal consolidation or other evidence of acute cardiopulmonary process. Chest/Abdomen CTA 04/27/19 09:40 IMPRESSION: 1. Negative examination for pulmonary embolism. 2. Bandlike scarring or consolidation in the medial right middle lobe, which can be seen as sequelae of atypical infection, including atypical mycobacterium. 3. Severe mixed calcific atherosclerosis of the descending thoracic aorta with irregular mural thrombus. 4. Coronary artery disease. Assessment and Plan - Plan Summary Summary: 04/27/2019 Community-acquired pneumonia-Place patient on medical surgical floor at this time. Rocephin 1 g IV daily, azithromycin 500 mg IV daily, bronchodilators, Solu-Medrol 40 mg IV every 8 hours. Reassess in the a.m. await blood cultures and sputum culture. New onset type 2 diabetes mellitus-sliding scale insulin before meals and at bedtime. A1c. Once A1c was returned I will add oral medications as needed for glycemic control. Carbohydrate controlled diet. Dietary education. Acute renal failure-hydrate with normal saline 100 mL an hour. Patient has no previous labs to confirm compare this to however do suspect its acute nature secondary to her acute illness. Will repeat BMP in the a.m. Hypertension-continue lisinopril from home. Tachycardia-most likely secondary to acute dehydration. Will hydrate with normal saline at 100 mL an hour overnight-. Reassess in the a.m. DVT prophylaxis-heparin 5000 units subcu every 8 hours. 04/28/2019- Community acquired pneumonia-continue Rocephin and azithromycin at this time. IV Solu-Medrol has been DC'd as wheezing has ceased I will place patient on 40 mg of p.o. prednisone daily. Awaiting cultures New onset type 2 diabetes mellitus A1c 12.5-most likely will require outpatient insulin therapy as well as oral medications. At this time patient remains high most likely secondary to steroids. I DC'd her IV steroids patient on p.o. prednisone. She is on a carbohydrate controlled diet I will initiate oral medications in the a.m. I have also ordered nurses to perform Accu-Chek blood soto gars every couple hours and to cover with sliding scale until patient's blood sugar is down to a reasonable level. Acute renal failure-continue to follow most likely chronic in nature. Tachycardia-stable and improved. We will continue to follow Hypomagnesemia-1 g IV magnesium sulfate at this time we will repeat magnesium level in a.m. 04/29/2019- Community acquired pneumonia-continue Rocephin at this time. I DC'd azithromycin and Flagyl. One blood culture 1 bottle gram-negative rods. Con tinue prednisone 40 g p.o. daily. Awaiting culture finalization. Type 2 diabetes mellitus new onset-continue current sliding scale insulin. I have added Lantus 30 units subcu at bedtime last evening remains running high we will add glipizide 5 mill grams p.o. twice daily with meals. Continue to follow Chronic renal failure-upon further evaluation seems to be chronic in nature we will continue to follow it is stable Tachycardia improved continue to follow. Hypomagnesemia-awaiting a.m. labs. Treat as appropriate - Time Time Spent with patient: 15-24 minutes - Inpatient Certification Based on my medical assessment, after consideration of the patient's comorbidities, presenting symptoms, or acuity I expect that the services needed warrant INPATIENT care.: Yes I certify that my determination is in accordance with my understanding of Medicare's requirements for reasonable and necessary INPATIENT services [42 CFR 412.3e].: Yes Medical Necessity: Other - IV antibiotics
[2019-04-29] MEDS: PREDNISONE 20 MG TABLET PO SCH (09:10)
[2019-04-29] MEDS: GLIPIZIDE 5 MG TABLET PO SCH ×2 (09:11→17:33)
[2019-04-29] MEDS: INSULIN REG, HUMAN 100 UNIT/ML 3 ML VIAL (PYX) SUBCUT PRN ×4 (09:11→22:46)
[2019-04-29] MEDS: GUAIFENESIN 600 MG TABLET.SA PO SCH ×2 (09:11→22:46)
[2019-04-29] MEDS: CEFTRIAXONE 1 GM/D5W RTU 1 GM/50 ML RTUPB IV SCH (12:10)
[2019-04-29] MEDS: INSULIN GLARGINE,HUM.REC.ANLOG 1,000 UNIT/10 ML VIAL SUBCUT SCH (17:33)
[2019-04-29] MEDS: ZOLPIDEM TARTRATE 5 MG TABLET PO PRN (22:54)
[2019-04-30] MEDS: ALBUTEROL SULFATE 0.083% NEB 2.5 MG/3 ML AMPUL NEB SCH ×4 (03:59→16:40)
[2019-04-30] MEDS: HEPARIN SOD (PORCINE) 5,000 UNIT/ML 1 ML VIAL SUBCUT SCH ×2 (05:44→18:49)
[2019-04-30 06:44] LABS: ANION GAP 7 (5-19); BLOOD UREA NITROGEN 28 mg/dL (7-20); CALCIUM 8.9 mg/dL (8.4-10.2); CARBON DIOXIDE 28 mmol/L (22-30); CHLORIDE 104 mmol/L (98-107); POTASSIUM 3.6 mmol/L (3.6-5.0)
[2019-04-30 06:50] LABS: HEMATOCRIT 36.3 % (36.0-47.0); HEMOGLOBIN 12.3 g/dL (12.0-15.5); MEAN CORPUSCULAR HEMOGLOBIN 31.8 pg (27.0-33.4); MEAN CORPUSCULAR HGB CONC 34.1 g/dL (32.0-36.0); MEAN CORPUSCULAR VOLUME 94 fl (80-97); PLATELET COUNT 222 10^3/uL (150-450); RED BLOOD COUNT 3.88 10^6/uL (3.72-5.28); RED CELL DISTRIBUTION WIDTH 13.3 % (11.5-14.0); WHITE BLOOD COUNT 17.6 10^3/uL (4.0-10.5)
[2019-04-30 06:51] LABS: GLUCOSE 69 mg/dL (75-110)
--- NOTE | 2019-04-30 08:03 | PDOC DISCHARGE SUMMARY ---
Impression - Admit/DC Date/PCP Admission Date/Primary Care Provider: 04/27/19 11:08 GEORGE YANG PA-C Discharge Date: 04/30/19 - Assessment Summary: 04/27/2019 Community-acquired pneumonia-Place patient on medical surgical floor at this time. Rocephin 1 g IV daily, azithromycin 500 mg IV daily, bronchodilators, Solu-Medrol 40 mg IV every 8 hours. Reassess in the a.m. await blood cultures and sputum culture. New onset type 2 diabetes mellitus-sliding scale insulin before meals and at bedtime. A1c. Once A1c was returned I will add oral medications as needed for glycemic control. Carbohydrate controlled diet. Dietary education. Acute renal failure-hydrate with normal saline 100 mL an hour. Patient has no previous labs to confirm compare this to however do suspect its acute nature secondary to her acute illness. Will repeat BMP in the a.m. Hypertension-continue lisinopril from home. Tachycardia-most likely secondary to acute dehydration. Will hydrate with normal saline at 100 mL an hour overnight-. Reassess in the a.m. DVT prophylaxis-heparin 5000 units subcu every 8 hours. 04/28/2019- Community acquired pneumonia-continue Rocephin and azithromycin at this time. IV Solu-Medrol has been DC'd as wheezing has ceased I will place patient on 40 mg of p.o. prednisone daily. Awaiting cultures New onset type 2 diabetes mellitus A1c 12.5-most likely will require outpatient insulin therapy as well as oral medications. At this time patient remains high most likely secondary to steroids. I DC'd her IV steroids patient on p.o. prednisone. She is on a carbohydrate controlled diet I will initiate oral medications in the a.m. I have also ordered nurses to perform Accu-Chek blood sugars every couple hours and to cover with sliding scale until patient's blood sugar is down to a reasonable level. Acute renal failure-continue to follow most likely chronic in nature. Tachycardia-stable and improved. We will continue to follow Hypomagnesemia-1 g IV magnesium sulfate at this time we will repeat magnesium level in a.m. 04/29/2019- Community acquired pneumonia-continue Rocephin at this time. I DC'd azithromycin and Flagyl. One blood culture 1 bottle gram-negative rods. Continue prednisone 40 g p.o. daily. Awaiting culture finalization. Type 2 diabetes mellitus new onset-continue current sliding scale insulin. I have added Lantus 30 units subcu at bedtime last evening remains running high we will add glipizide 5 mill grams p.o. twice daily with meals. Continue to follow Chronic renal failure-upon further evaluation seems to be chronic in nature we will continue to follow it is stable Tachycardia improved continue to follow. Hypomagnesemia-awaiting a.m. labs. Treat as appropriate - Additional Information Resuscitation Status: Full Code Discharge Diet: As Tolerated Discharge Activity: Activity As Tolerated Referrals: GEORGE YANG PA-C [Primary Care Provider] - Follow up as needed Prescriptions: Ciprofloxacin HCl [Cipro 500 mg Tablet] 500 mg PO BID #20 tablet Glipizide [Glucotrol 5 mg Tablet] 5 mg PO DAILY #30 tablet Hum Insulin NPH/Reg Insulin Hm [Novolin 70-30 100 Unit/Ml Vial] 10 unit SQ TID #2 vial Home Medications: Aspirin [Ecotrin 81 mg EC Tablet] 81 mg PO DAILY 04/27/19 Lisinopril 20 mg PO DAILY 04/27/19 Naproxen Sodium 220 mg PO DAILYP PRN 04/27/19 Triamterene/Hydrochlorothiazid [Triamterene-Hctz 37.5-25 mg Tb] 1 each PO DAILY 04/27/19 Ciprofloxacin HCl [Cipro 500 mg Tablet] 500 mg PO BID #20 tablet 04/30/19 Glipizide [Glucotrol 5 mg Tablet] 5 mg PO DAILY #30 tablet 04/30/19 Hum Insulin NPH/Reg Insulin Hm [Novolin 70-30 100 Unit/Ml Vial] 10 unit SQ TID #2 vial 04/30/19 History of Present Illiness History of Present Illness: LIDA PERKINS is a 69 year old female who presents from her primary care office with hyperglycemia with a blood sugar of 353. Patient also complains of weakness, chills and clear emesis x3 days. Patient has no history of diabetes and she was unaware that she had a fever but has reported a nonproductive cough. She had no treatment prior to arrival all activities aggravating factor. Hospital Course Hospital Course: Patient was admitted on 04/27/2019 after being sent from primary care office with hyperglycemia with a blood sugar 353. Patient was also experiencing weakness, chills and clear emesis x3 days. Patient was found to have a community acquired pneumonia and a new onset type 2 diabetes mellitus. Patient was treated throughout her course of stay with IV antibiotics and was found to have gram- negative rods in 1 blood culture. This was set up with Cipro for which I will send her home on Cipro 500 g p.o. twice daily x10 days. Patient also has new onset diabetic we will give her glipizide 5 mill grams p.o. daily and due to cost containment NovoLog 70/30 10 units 3 times daily with meals. Patient is to take blood sugar readings 1 hour before breakfast and 2 hours after dinner keep a log and return to her primary care practitioner for further treatment options. Patient is in agreement with plan of care. Physical Exam Vital Signs: Temp Pulse Resp BP Pulse Ox 97.5 F 69 14 118/56 L 95 04/30/19 07:52 04/30/19 07:52 04/30/19 07:52 04/30/19 07:52 04/30/19 07:52 Intake & Output 04/29/19 04/30/19 05/01/19 06:59 06:59 06:59 Intake Total 4300 620 Balance 4300 620 Weight 98.7 kg General appearance: PRESENT: no acute distress, well-developed, well-nourished Head exam: PRESENT: atraumatic, normocephalic Eye exam: PRESENT: conjunctiva pink, EOMI, PERRLA. ABSENT: scleral icterus Ear exam: PRESENT: normal external ear exam Mouth exam: PRESENT: moist, tongue midline Neck exam: ABSENT: carotid bruit, JVD, lymphadenopathy, thyromegaly Respiratory exam: PRESENT: clear to auscultation gay. ABSENT: rales, rhonchi, wheezes Cardiovascular exam: PRESENT: RRR. ABSENT: diastolic murmur, rubs, systolic murmur Pulses: PRESENT: normal dorsalis pedis pul Vascular exam: PRESENT: normal capillary refill GI/Abdominal exam: PRESENT: normal bowel sounds, soft. ABSENT: distended, guarding, mass, organolmegaly, rebound, tenderness Rectal exam: PRESENT: deferred Extremities exam: PRESENT: full ROM. ABSENT: calf tenderness, clubbing, pedal edema Neurological exam: PRESENT: alert, awake, oriented to person, oriented to place, oriented to time, oriented to situation, CN II-XII grossly intact. ABSENT: motor sensory deficit Psychiatric exam: PRESENT: appropriate affect, normal mood. ABSENT: homicidal ideation, suicidal ideation Skin exam: PRESENT: dry, intact, warm. ABSENT: cyanosis, rash Results Laboratory Results: WBC 17.6 10^3/uL (4.0-10.5) H 04/30/19 06:02 RBC 3.88 10^6/uL (3.72-5.28) 04/30/19 06:02 Hgb 12.3 g/dL (12.0-15.5) 04/30/19 06:02 Hct 36.3 % (36.0-47.0) 04/30/19 06:02 MCV 94 fl (80-97) 04/30/19 06:02 MCH 31.8 pg (27.0-33.4) 04/30/19 06:02 MCHC 34.1 g/dL (32.0-36.0) 04/30/19 06:02 RDW 13.3 % (11.5-14.0) 04/30/19 06:02 Plt Count 222 10^3/uL (150-450) 04/30/19 06:02 Lymph % (Auto) 7.6 % (13-45) L 04/27/19 08:10 Peach % (Auto) 4.0 % (3-13) 04/27/19 08:10 Eos % (Auto) 0.6 % (0-6) 04/27/19 08:10 Baso % (Auto) 0.2 % (0-2) 04/27/19 08:10 Absolute Neuts (auto) 7.4 10^3/uL (1.7-8.2) 04/27/19 08:10 Absolute Lymphs (auto) 0.6 10^3/uL (0.5-4.7) 04/27/19 08:10 Absolute Monos (auto) 0.3 10^3/uL (0.1-1.4) 04/27/19 08:10 Absolute Eos (auto) 0.0 10^3/uL (0.0-0.6) 04/27/19 08:10 Absolute Basos (auto) 0.0 10^3/uL (0.0-0.2) 04/27/19 08:10 Seg Neutrophils % 87.6 % (42-78) H 04/27/19 08:10 PT 14.1 SEC (11.4-15.4) 04/27/19 08:10 INR 1.09 04/27/19 08:10 VBG pH 7.40 (7.30-7.42) 04/27/19 08:10 VBG pCO2 42.4 mmHg (35-63) 04/27/19 08:10 VBG HCO3 25.6 mmol/L (20-32) 04/27/19 08:10 VBG Base Excess 0.6 mmol/L 04/27/19 08:10 Sodium 139.4 mmol/L (137-145) 04/30/19 06:02 Potassium 3.6 mmol/L (3.6-5.0) 04/30/19 06:02 Chloride 104 mmol/L (98-107) 04/30/19 06:02 Carbon Dioxide 28 mmol/L (22-30) 04/30/19 06:02 Anion Gap 7 (5-19) 04/30/19 06:02 BUN 28 mg/dL (7-20) H 04/30/19 06:02 Creatinine 1.25 mg/dL (0.52-1.25) 04/30/19 06:02 Est GFR ( Amer) 51 (>60) L 04/30/19 06:02 Est GFR (MDRD) Non-Af 42 (>60) L 04/30/19 06:02 Glucose 69 mg/dL (75-110) L 04/30/19 06:02 POC Glucose 100 mg/dL (70-110) 04/30/19 07:27 Hemoglobin A1c % 12.5 % (4.7-6.0) H 04/28/19 04:40 Lactic Acid 1.6 mmol/L (0.7-2.1) 04/27/19 08:10 Calcium 8.9 mg/dL (8.4-10.2) 04/30/19 06:02 Phosphorus 2.7 mg/dL (2.5-4.5) 04/28/19 04:40 Magnesium 2.0 mg/dL (1.6-2.3) 04/29/19 05:17 Total Bilirubin 1.3 mg/dL (0.2-1.3) 04/27/19 08:10 Direct Bilirubin 0.5 mg/dL (0.0-0.4) H 04/27/19 08:10 Neonat Total Bilirubin Not Reportable 04/27/19 08:10 Neonat Direct Bilirubin Not Reportable 04/27/19 08:10 Neonat Indirect Bili Not Reportable 04/27/19 08:10 AST 34 U/L (14-36) 04/27/19 08:10 ALT 27 U/L (<35) 04/27/19 08:10 Alkaline Phosphatase 137 U/L (38-126) H 04/27/19 08:10 Total Protein 6.5 g/dL (6.3-8.2) 04/27/19 08:10 Albumin 3.5 g/dL (3.5-5.0) 04/27/19 08:10 TSH 1.37 uIU/mL (0.47-4.68) 04/28/19 04:40 Free T4 0.95 ng/dL (0.78-2.19) 04/28/19 04:40 Urine Color YELLOW 04/27/19 19:30 Urine Appearance SLIGHTLY-CLOUDY 04/27/19 19:30 Urine pH 5.0 (5.0-9.0) 04/27/19 19:30 Ur Specific [place] 1.042 04/27/19 19:30 Urine Protein 30 mg/dL (NEGATIVE) H 04/27/19 19:30 Urine Glucose (UA) >=500 mg/dL (NEGATIVE) H 04/27/19 19:30 Urine Ketones NEGATIVE mg/dL (NEGATIVE) 04/27/19 19:30 Urine Blood LARGE (NEGATIVE) H 04/27/19 19:30 Urine Nitrite NEGATIVE (NEGATIVE) 04/27/19 19:30 Urine Bilirubin NEGATIVE (NEGATIVE) 04/27/19 19:30 Urine Urobilinogen NEGATIVE mg/dL (<2.0) 04/27/19 19:30 Ur Leukocyte Esterase MODERATE (NEGATIVE) H 04/27/19 19:30 Urine WBC (Auto) 46 /HPF 04/27/19 19:30 Urine RBC (Auto) 7 /HPF 04/27/19 19:30 Squamous Epi Cells Auto 2 /HPF 04/27/19 19:30 Urine Mucus (Auto) RARE /LPF 04/27/19 19:30 Urine Ascorbic Acid NEGATIVE (NEGATIVE) 04/27/19 19:30 Influenza A (Rapid) NEGATIVE (NEGATIVE) 04/27/19 08:45 Influenza B (Rapid) NEGATIVE (NEGATIVE) 04/27/19 08:45 Impressions: Chest X-Ray 04/27/19 00:00 IMPRESSION: No focal consolidation or other evidence of acute cardiopulmonary process. Chest/Abdomen CTA 04/27/19 09:40 IMPRESSION: 1. Negative examination for pulmonary embolism. 2. Bandlike scarring or consolidation in the medial right middle lobe, which can be seen as sequelae of atypical infection, including atypical mycobacterium. 3. Severe mixed calcific atherosclerosis of the descending thoracic aorta with irregular mural thrombus. 4. Coronary artery disease. Plan Time Spent: Greater than 30 Minutes Stroke Is this a Stroke Patient?: No Acute Heart Failure - Is this a Heart Failure Patient?: No
[2019-04-30] MEDS: GLIPIZIDE 5 MG TABLET PO SCH ×2 (09:05→18:17)
[2019-04-30] MEDS: PREDNISONE 20 MG TABLET PO SCH (10:23)
[2019-04-30] MEDS: GUAIFENESIN 600 MG TABLET.SA PO SCH (10:23)
[2019-04-30] MEDS: CEFTRIAXONE 1 GM/D5W RTU 1 GM/50 ML RTUPB IV SCH (11:52)
[2019-04-30] MEDS: OXYCODONE-ACETAMINOPHEN 5-325 MG TABLET PO PRN (12:05)
[2019-04-30] MEDS: INSULIN REG, HUMAN 100 UNIT/ML 3 ML VIAL (PYX) SUBCUT PRN ×2 (12:48→18:17)
[2019-04-30] MEDS: INSULIN GLARGINE,HUM.REC.ANLOG 1,000 UNIT/10 ML VIAL SUBCUT SCH (18:19)
[2019-04-30 18:24] VITALS: BP 137/80
== END 2019-04-30 19:40 | disposition home or self-care (01) | DRG 637 ==
LOC: ER 07:43 → EH 11:08 → 3N 18:58 → 2S 04-29 18:09
PROVIDERS: ADMIT Internal Medicine; ATTEND Internal Medicine
PROC: 3E0234Z Introduction of Serum, Toxoid and Vaccine into Muscle, Percutaneous Approach (ICD-10-PCS; principal; 2019-04-27)
DX: E11.65 Type 2 diabetes mellitus with hyperglycemia (principal); J18.1 Lobar pneumonia, unspecified organism; N17.9 Acute kidney failure, unspecified; I10 Essential (primary) hypertension; E86.0 Dehydration; E83.42 Hypomagnesemia; Z23 Encounter for immunization
CPT/HCPCS: 36415; 71045; 71275; 80048; 80053; 81001; 82803; 82962; 83036; 83605; 83735; 84100; 84439; 84443; 85025; 85027; 85610; 87040; 87070; 87077; 87086; 87186; 87205; 87804; 90686; 93005; 93010; 94640; 96361; 96374; 99285; J0456; J0696; J1644; J1815; J2405; J2920; J3475; J3490; J7030; J7060; J7120; J7512; J7620

== ENCOUNTER 2020-01-02 08:58 | Day surgery (SDC) | payer MEDICARE ==
[2020-01-02 10:23] LABS: HEMATOCRIT 36.8 % (36.0-47.0); HEMOGLOBIN 12.2 g/dL (12.0-15.5); MEAN CORPUSCULAR HEMOGLOBIN 30.8 pg (27.0-33.4); MEAN CORPUSCULAR VOLUME 93 fl (80-97); PLATELET COUNT 206 10^3/uL (150-450); RED BLOOD COUNT 3.95 10^6/uL (3.72-5.28); RED CELL DISTRIBUTION WIDTH 14.5 % (11.5-14.0); WHITE BLOOD COUNT 11.4 10^3/uL (4.0-10.5)
[2020-01-02 10:35] LABS: INTERNATIONAL RATION (INR) 1.01; PROTHROMBIN TIME 13.3 SEC (11.4-15.4)
[2020-01-02 10:39] LABS: BLOOD UREA NITROGEN 39 mg/dL (7-20)
[2020-01-02] MEDS ORDERED: MIDAZOLAM 2 MG/2 ML INJ ONE (11:00)
[2020-01-02] MEDS ORDERED: FENTANYL CITRATE INJ/PF 100 MCG/2 ML AMPUL ONE (11:00)
[2020-01-02 14:00] VITALS: BP 131/69
--- NOTE | 2020-01-02 14:50 | RADIOLOGY REPORT (SQ) ---
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 FLUORO TIME: 5.5 seconds. 178 images submitted to PACS. LIMITATIONS: None. PROCEDURE: The procedure, risks, benefits, and alternatives were discussed with the patient in the p reprocedural area, and all questions were answered. Informed consent was obtained verbally and in wri ting. The patient was then brought to the CT suite, positioned supine on the CT gurney, and a time-out was performed. After that, axial images of the abdomen were obtained for targeting of the masslike areas of low attenuation in the right lobe of the liver. Based on review of the axial images an appropria te access site was selected on the . The area around selected access site was then prepped and draped with 2% chlorhexidine utilizing mireya dard sterile technique. After that, the access site was infiltrated with 1% lidocaine and an incisio n was made in the skin with a #11 blade. A 17 gauge coaxial needle was then advanced through the skin incision and into the a masslike area of low attenuation in the right lobe of the liver utilizing CT fluoroscopic guidance. After that, the inner stylet of the coaxial needle was removed and 6 18 gauge core samples were obtained - the samples were collected and submitted to cytopathology in formalin. Then, as coaxial needle was removed, the biopsy track was embolized with Gelfoam. After the coaxial needle was removed axial images of the abdomen were repeated and reviewed ; the images demonstrated n o acute biopsy-related complication. The patient tolerated the procedure well without immediate complication. At the end of the procedure the patient's condition was unchanged from the preprocedural baseline. IV conscious sedation was administered at the direction of the performing physician by a cassandra penaloza. 1 milligrams of Versed and 50 micrograms of fentanyl. Physiologic monitoring was provided befor e, during, and after sedation. The total sedation time was 30 minutes. Documentation of [id number] time the performing proceduralist spent monitoring the patient: 18 min utes. IMPRESSION: Successful CT-guided biopsy of a masslike area of low attenuation in the right lobe of t he liver as detailed above. COMMENT: Patient medication list reviewed: Yes- Quality ID# [id number]:Eligible professional attests to doc umenting in the medical record they obtained, updated, or reviewed the patient's current medications. Quality ID #76: The patient was prepped and draped using maximum sterile barrier technique including cap, mask, sterile gown, sterile gloves, a large sterile sheet, hand hygiene, and 2% Chlorhexidine fo r cutaneous antisepsis. When ultrasound is used, sterile ultrasound techniques are followed requiring sterile gel and sterile probes. Quality ID 145: Final reports for procedures using fluoroscopy that document radiation exposure caity karyn, or exposure time and number of fluorographic images (if radiation exposure indices are not avail able) Quality ID# 436: Final reports with documentation of one or more dose reduction techniques (e.g., Aut omated exposure control, adjustment of the mA and/or kV according to patient size, use of iterative r econstruction technique) TECHNICAL DOCUMENTATION: JOB ID: [id number] 2010 [employer]- All Rights Reserved rev-11/09 Reading location - IP/workstation name: [email or web address]
--- NOTE | 2020-01-02 14:50 | RADIOLOGY REPORT (SQ) ---
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 FLUORO TIME: 5.5 seconds. 178 images submitted to PACS. LIMITATIONS: None. PROCEDURE: The procedure, risks, benefits, and alternatives were discussed with the patient in the p reprocedural area, and all questions were answered. Informed consent was obtained verbally and in wri ting. The patient was then brought to the CT suite, positioned supine on the CT gurney, and a time-out was performed. After that, axial images of the abdomen were obtained for targeting of the masslike areas of low attenuation in the right lobe of the liver. Based on review of the axial images an appropria te access site was selected on the . The area around selected access site was then prepped and draped with 2% chlorhexidine utilizing mireya dard sterile technique. After that, the access site was infiltrated with 1% lidocaine and an incisio n was made in the skin with a #11 blade. A 17 gauge coaxial needle was then advanced through the skin incision and into the a masslike area of low attenuation in the right lobe of the liver utilizing CT fluoroscopic guidance. After that, the inner stylet of the coaxial needle was removed and 6 18 gauge core samples were obtained - the samples were collected and submitted to cytopathology in formalin. Then, as coaxial needle was removed, the biopsy track was embolized with Gelfoam. After the coaxial needle was removed axial images of the abdomen were repeated and reviewed ; the images demonstrated n o acute biopsy-related complication. The patient tolerated the procedure well without immediate complication. At the end of the procedure the patient's condition was unchanged from the preprocedural baseline. IV conscious sedation was administered at the direction of the performing physician by a cassandra penaloza. 1 milligrams of Versed and 50 micrograms of fentanyl. Physiologic monitoring was provided befor e, during, and after sedation. The total sedation time was 30 minutes. Documentation of [id number] time the performing proceduralist spent monitoring the patient: 18 min utes. IMPRESSION: Successful CT-guided biopsy of a masslike area of low attenuation in the right lobe of t he liver as detailed above. COMMENT: Patient medication list reviewed: Yes- Quality ID# 130:Eligible professional attests to doc umenting in the medical record they obtained, updated, or reviewed the patient's current medications. Quality ID #76: The patient was prepped and draped using maximum sterile barrier technique including cap, mask, sterile gown, sterile gloves, a large sterile sheet, hand hygiene, and 2% Chlorhexidine fo r cutaneous antisepsis. When ultrasound is used, sterile ultrasound techniques are followed requiring sterile gel and sterile probes. Quality ID 145: Final reports for procedures using fluoroscopy that document radiation exposure caity karyn, or exposure time and number of fluorographic images (if radiation exposure indices are not avail able) Quality ID# 436: Final reports with documentation of one or more dose reduction techniques (e.g., Aut omated exposure control, adjustment of the mA and/or kV according to patient size, use of iterative r econstruction technique) TECHNICAL DOCUMENTATION: JOB ID: [id number] 2010 [employer]- All Rights Reserved rev-11/09 Reading location - IP/workstation name: [email or web address]
== END 2020-01-02 13:55 | disposition home or self-care (01) ==
LOC: RAD 08:58
PROVIDERS: ATTEND Internal Medicine Hematology & Oncology
DX: C78.7 Secondary malignant neoplasm of liver and intrahepatic bile duct (principal); K76.9 Liver disease, unspecified; Z79.01 Long term (current) use of anticoagulants; E78.5 Hyperlipidemia, unspecified; Z79.4 Long term (current) use of insulin; Z88.0 Allergy status to penicillin; Z88.2 Allergy status to sulfonamides; E11.22 Type 2 diabetes mellitus with diabetic chronic kidney disease; I12.9 Hypertensive chronic kidney disease with stage 1 through stage 4 chronic kidney disease, or unspecified chronic kidney disease; N18.9 Chronic kidney disease, unspecified
CPT/HCPCS: 36415; 82962; 84520; 82565; 85027; 85610; 85730; 88342 ×2; 88341 ×2; 88305 ×2; 77012; 47000; J2250; J3010